=== PATIENT | female | born 1975 | race Caucasian/White ===

== ENCOUNTER 2017-10-09 17:51 | Inpatient (IN) | payer MEDICAID ==
[2017-10-09 19:48] VITALS: BP 129/85
[2017-10-09] MEDS ORDERED: DIVA500T35 PO (20:06)
[2017-10-09] MEDS ORDERED: RISP1 PO (20:06)
[2017-10-09] MEDS ORDERED: LORazepam 2 MG TABLET PO PRN (20:30)
[2017-10-09] MEDS ORDERED: HALOPERIDOL 5 MG TABLET PO PRN (20:30)
[2017-10-09] MEDS ORDERED: ZOLPIDEM TARTRATE 10 MG TABLET PO PRN (20:30)
[2017-10-10] MEDS: RisperiDONE 1 MG TABLET PO SCH ×3 (00:15→18:00)
[2017-10-10] MEDS: DIVALPROEX SODIUM 500 MG DR TABLET PO SCH ×3 (00:15→18:00)
[2017-10-10] MEDS ORDERED: LORazepam 2 MG/ML VIAL IM ONE (01:15)
[2017-10-10] MEDS ORDERED: HALOPERIDOL LACTATE 5 MG/ML VIAL IM ONE (01:15)
[2017-10-10] MEDS ORDERED: DiphenhydrAMINE HCL 50 MG/ML VIAL IM ONE (01:15)
[2017-10-10 07:11] LABS: BASOPHILS % (AUTO) 1.1 % (0.0-2.0); HEMATOCRIT 36.9 % (36-46); HEMOGLOBIN 12.7 g/dL (12.0-16.0); LYMPHOCYTES # (AUTO) 2.4 K/uL (1.0-4.8); LYMPHOCYTES % (AUTO) 43.5 % (22.0-44.0); MEAN CORPUSCULAR HEMOGLOBIN 31.3 pg (26.0-34.0); MEAN CORPUSCULAR HGB CONC 34.4 G/dL (31.0-37.0); MEAN CORPUSCULAR VOLUME 91 fL (80-100); MONOCYTES # (AUTO) 0.4 K/uL (0.1-1.0); MONOCYTES % (AUTO) 7.6 % (2.0-9.0); NEUTROPHILS # (AUTO) 2.1 K/uL (1.8-7.7); NEUTROPHILS % (AUTO) 38.8 % (40.0-70.0); PLATELET COUNT (AUTO) 338 K/uL (150-450); RED BLOOD CELL COUNT(AUTO) 4.05 MIL/uL (4.00-5.20); RED CELL DISTRIBUTION WIDTH 13.4 % (11.5-14.5)
[2017-10-10 07:50] LABS: ALANINE AMINOTRANSFERASE 23 U/L (12-78); ALBUMIN 3.5 g/dL (3.4-5.0); ALKALINE PHOSPHATASE 56 U/L (46-116); ANION GAP 7 mmol/L (8-16); ASPARTATE AMINOTRANSFERASE 30 U/L (15-37); BILIRUBIN,TOTAL 0.8 mg/dL (0.1-1.0); CALCIUM, TOTAL 8.7 mg/dL (8.8-10.5); CARBON DIOXIDE 25 mmol/L (22-29); CHLORIDE 101 mmol/L (98-107); CREATININE 0.67 mg/dL (0.60-1.30); FREE T4 (FREE THYROXINE) 0.92 ng/dL (0.76-1.46); GLOMERULAR FILTR. RATE CALC > 60 mL/min (>60); GLUCOSE,RANDOM 97 mg/dL (70-110); HCG,QUANTITATIVE < 1 mIU/mL (0-6); POTASSIUM 4.1 mmol/L (3.5-5.1); SODIUM SERUM 133 mmol/L (136-145); THYROID STIMULATING HORMONE 2.41 uIU/mL (0.36-3.74); TOTAL PROTEIN, SERUM 7.1 g/dL (6.4-8.2); UREA NITROGEN, BLOOD 16 mg/dL (7-18); VALPROIC ACID 4 mcg/mL (50-100)
[2017-10-10] MEDS: OLANZapine 5 MG TABLET PO SCH (18:00)
[2017-10-11] MEDS: RisperiDONE 1 MG TABLET PO SCH ×2 (10:23→17:33)
[2017-10-11] MEDS: DIVALPROEX SODIUM 500 MG DR TABLET PO SCH ×2 (10:23→17:33)
[2017-10-11] MEDS: OLANZapine 5 MG TABLET PO SCH ×2 (10:24→17:33)
[2017-10-11 16:00] VITALS: BP 102/69
[2017-10-12 06:12] LABS: EOSINOPHILS % (AUTO) 6.9 % (1.0-6.0); HEMATOCRIT 42.8 % (36-46); HEMOGLOBIN 14.9 g/dL (12.0-16.0); LYMPHOCYTES # (AUTO) 2.3 K/uL (1.0-4.8); LYMPHOCYTES % (AUTO) 36.2 % (22.0-44.0); MEAN CORPUSCULAR HEMOGLOBIN 31.4 pg (26.0-34.0); MEAN CORPUSCULAR HGB CONC 34.7 G/dL (31.0-37.0); MEAN CORPUSCULAR VOLUME 91 fL (80-100); MONOCYTES # (AUTO) 0.3 K/uL (0.1-1.0); MONOCYTES % (AUTO) 5.3 % (2.0-9.0); NEUTROPHILS # (AUTO) 3.2 K/uL (1.8-7.7); NEUTROPHILS % (AUTO) 50.6 % (40.0-70.0); PLATELET COUNT (AUTO) 369 K/uL (150-450); RED BLOOD CELL COUNT(AUTO) 4.73 MIL/uL (4.00-5.20); RED CELL DISTRIBUTION WIDTH 13.2 % (11.5-14.5)
[2017-10-12 07:03] LABS: ALANINE AMINOTRANSFERASE 22 U/L (12-78); ALBUMIN 3.7 g/dL (3.4-5.0); ALKALINE PHOSPHATASE 61 U/L (46-116); ANION GAP 9 mmol/L (8-16); ASPARTATE AMINOTRANSFERASE 16 U/L (15-37); BILIRUBIN,TOTAL 0.6 mg/dL (0.1-1.0); CALCIUM, TOTAL 9.1 mg/dL (8.8-10.5); CARBON DIOXIDE 25 mmol/L (22-29); CHLORIDE 102 mmol/L (98-107); CHOL/HDL RATIO 3.3 (3.9-5.7); CHOLESTEROL 169 mg/dL (131-200); CREATININE 0.76 mg/dL (0.60-1.30); FREE T4 (FREE THYROXINE) 1.06 ng/dL (0.76-1.46); GLOMERULAR FILTR. RATE CALC > 60 mL/min (>60); GLUCOSE,RANDOM 104 mg/dL (70-110); HDL CHOLESTEROL 51 mg/dL (40-60); LDL CHOL (CALC.) 96 mg/dL (0-130); POTASSIUM 4.5 mmol/L (3.5-5.1); SODIUM SERUM 136 mmol/L (136-145); THYROID STIMULATING HORMONE 1.55 uIU/mL (0.36-3.74); TOTAL PROTEIN, SERUM 7.6 g/dL (6.4-8.2); TRIGLYCERIDES 110 mg/dL (15-150); UREA NITROGEN, BLOOD 14 mg/dL (7-18)
[2017-10-12 09:07] LABS: FOLATE SERUM 14.5 ng/mL (5.4-)
[2017-10-12] MEDS: RisperiDONE 1 MG TABLET PO SCH ×2 (09:36→17:26)
[2017-10-12] MEDS: OLANZapine 5 MG TABLET PO SCH ×2 (09:36→17:26)
[2017-10-12] MEDS: DIVALPROEX SODIUM 500 MG DR TABLET PO SCH ×2 (09:36→17:26)
[2017-10-12 10:41] VITALS: BP 105/73
[2017-10-12 17:00] VITALS: BP 112/76
[2017-10-13] MEDS: DIVALPROEX SODIUM 500 MG DR TABLET PO SCH ×3 (09:00→16:25)
[2017-10-13] MEDS: RisperiDONE 1 MG TABLET PO SCH ×2 (09:52→16:21)
[2017-10-13] MEDS: OLANZapine 5 MG TABLET PO SCH ×2 (09:52→16:21)
[2017-10-13 13:51] VITALS: BP 94/64
[2017-10-13 16:39] VITALS: BP 104/72
[2017-10-14 08:00] VITALS: BP 123/72
[2017-10-14] MEDS ORDERED: OLANZapine 5 MG TABLET PO SCH (09:00)
[2017-10-14 09:56] VITALS: BP 123/72
[2017-10-14] MEDS ORDERED: OLAN7.5T2 PO (10:48)
== END 2017-10-14 13:35 | disposition home or self-care (01) | DRG 750 ==
LOC: 3EI 20:43
PROVIDERS: ADMIT Psychiatry & Neurology Psychiatry; ATTEND Psychiatry & Neurology Psychiatry
DX: F20.0 Paranoid schizophrenia (principal); E87.1 Hypo-osmolality and hyponatremia; T42.6X5A Adverse effect of other antiepileptic and sedative-hypnotic drugs, initial encounter; F29 Unspecified psychosis not due to a substance or known physiological condition; F41.9 Anxiety disorder, unspecified; H53.2 Diplopia; Z59.0 Homelessness; Y92.89 Other specified places as the place of occurrence of the external cause
CPT/HCPCS: 80074; 82306; 82607; 82746; 83735; 84439; 84443; 86592; J1200; J1630; J2060

== ENCOUNTER 2017-11-08 13:58 | Inpatient (IN) | payer MEDICAID, OTHER ==
[~2017-11-08] VITALS: Ht 154.9 cm; Wt 56.0 kg
[~2017-11-08 13:58] MED LIST: DIVA500T35 PO; OLAN7.5T2 PO; RISP1 PO
[2017-11-08] MEDS ORDERED: SERT50TA12 PO (14:17)
[2017-11-08 14:34] LABS: BASOPHILS % (AUTO) 1.1 % (0.0-2.0); HEMATOCRIT 34.7 % (36-46); HEMOGLOBIN 11.9 g/dL (12.0-16.0); LYMPHOCYTES # (AUTO) 2.5 K/uL (1.0-4.8); LYMPHOCYTES % (AUTO) 42.9 % (22.0-44.0); MEAN CORPUSCULAR HGB CONC 34.2 G/dL (31.0-37.0); MEAN CORPUSCULAR VOLUME 91 fL (80-100); MONOCYTES # (AUTO) 0.3 K/uL (0.1-1.0); MONOCYTES % (AUTO) 4.7 % (2.0-9.0); NEUTROPHILS # (AUTO) 2.6 K/uL (1.8-7.7); NEUTROPHILS % (AUTO) 44.3 % (40.0-70.0); PLATELET COUNT (AUTO) 301 K/uL (150-450); RED BLOOD CELL COUNT(AUTO) 3.83 MIL/uL (4.00-5.20); RED CELL DISTRIBUTION WIDTH 13.3 % (11.5-14.5)
[2017-11-08 14:42] LABS: AMPHET/METH SCREEN,URINE POSITIVE (NEGATIVE); BARBITURATE SCREEN, URINE NEGATIVE (NEGATIVE); BENZODIAZEPINES SCREEN,URINE NEGATIVE (NEGATIVE); CANNABINOID SCREEN,URINE POSITIVE (NEGATIVE); COCAINE SCREEN,URINE NEGATIVE (NEGATIVE); METHADONE SCREEN, URINE NEGATIVE (NEGATIVE); OPIATE SCREEN,URINE NEGATIVE (NEGATIVE); PHENCYCLIDINE SCREEN,URINE NEGATIVE (NEGATIVE)
[2017-11-08 14:42] LABS: ANION GAP 10 mmol/L (8-16); CARBON DIOXIDE 24 mmol/L (22-29); CHLORIDE 107 mmol/L (98-107); CREATININE 0.75 mg/dL (0.60-1.30); GLOMERULAR FILTR. RATE CALC > 60 mL/min (>60); GLUCOSE,RANDOM 82 mg/dL (70-110); POTASSIUM 3.3 mmol/L (3.5-5.1); SODIUM SERUM 141 mmol/L (136-145); UREA NITROGEN, BLOOD 11 mg/dL (7-18)
[2017-11-08 14:48] LABS: ALANINE AMINOTRANSFERASE 23 U/L (12-78); ALBUMIN 3.5 g/dL (3.4-5.0); ALKALINE PHOSPHATASE 55 U/L (46-116); ASPARTATE AMINOTRANSFERASE 19 U/L (15-37); BILIRUBIN,TOTAL 0.8 mg/dL (0.1-1.0); TOTAL PROTEIN, SERUM 7.1 g/dL (6.4-8.2)
[2017-11-08] MEDS ORDERED: POTASSIUM CHLORIDE 20 MEQ ER TABLET PO ONE (15:00)
[2017-11-08] MEDS ORDERED: LORazepam 2 MG TABLET PO PRN (17:30)
[2017-11-08] MEDS ORDERED: HALOPERIDOL 5 MG TABLET PO PRN (17:30)
[2017-11-08] MEDS ORDERED: ZOLPIDEM TARTRATE 10 MG TABLET PO PRN (17:30)
[2017-11-08 19:18] LABS: HCG,QUANTITATIVE < 1 mIU/mL (0-6)
[2017-11-09] MEDS ORDERED: LORazepam 2 MG/ML VIAL IM ONE ×2 (09:00→19:00)
[2017-11-09] MEDS ORDERED: DiphenhydrAMINE HCL 50 MG/ML VIAL IM ONE ×2 (09:00→19:00)
[2017-11-09] MEDS ORDERED: HALOPERIDOL LACTATE 5 MG/ML VIAL IM ONE ×2 (09:00→19:00)
[2017-11-09 09:20] LABS: CHOL/HDL RATIO 2.8 (3.9-5.7)
[2017-11-09 09:40] LABS: FREE T4 (FREE THYROXINE) 0.94 ng/dL (0.76-1.46); THYROID STIMULATING HORMONE 1.02 uIU/mL (0.36-3.74)
[2017-11-09 12:19] VITALS: BP 112/66
[2017-11-09] MEDS ORDERED: IBUPROFEN 400 MG TABLET PO PRN ×2 (13:15→16:15)
[2017-11-09] MEDS ORDERED: ACETAMINOPHEN 325 MG TABLET PO PRN ×2 (13:15→16:15)
[2017-11-09] MEDS: TERBINAFINE HCL 1% 30 GM CREAM TP SCH (16:12)
[2017-11-10 01:30] VITALS: BP 101/63
[2017-11-10 08:21] VITALS: BP 114/71
[2017-11-10 08:27] LABS: HEMOGLOBIN A1C 6.2 % (4.5-6.2)
[2017-11-10 08:46] LABS: POTASSIUM 3.8 mmol/L (3.5-5.1); THYROID STIMULATING HORMONE 3.1 uIU/mL (0.36-3.74)
[2017-11-10] MEDS: RisperiDONE 2 MG TABLET PO SCH ×2 (09:00→16:48)
[2017-11-10] MEDS: DIVALPROEX SODIUM 500 MG DR TABLET PO SCH ×2 (09:00→16:48)
[2017-11-10] MEDS: TERBINAFINE HCL 1% 30 GM CREAM TP SCH ×2 (09:00→16:49)
[2017-11-10] MEDS ORDERED: IBUPROFEN 400 MG TABLET PO PRN (13:30)
[2017-11-10] MEDS ORDERED: ACETAMINOPHEN 325 MG TABLET PO PRN (13:30)
[2017-11-10 16:54] VITALS: BP 108/66
[2017-11-11 06:41] VITALS: BP 110/70
[2017-11-11 08:30] LABS: HEMOGLOBIN A1C 5.6 % (4.5-6.2)
[2017-11-11 08:37] VITALS: BP 116/71
[2017-11-11] MEDS: RisperiDONE 2 MG TABLET PO SCH ×2 (08:51→16:50)
[2017-11-11] MEDS: TERBINAFINE HCL 1% 30 GM CREAM TP SCH ×2 (08:51→16:50)
[2017-11-11] MEDS: DIVALPROEX SODIUM 500 MG DR TABLET PO SCH ×2 (08:52→16:50)
[2017-11-11 09:00] LABS: THYROID STIMULATING HORMONE 1.72 uIU/mL (0.36-3.74)
[2017-11-11 16:21] VITALS: BP 109/77
[2017-11-12 06:52] VITALS: BP 100/68
[2017-11-12 08:33] VITALS: BP 106/69
[2017-11-12] MEDS: DIVALPROEX SODIUM 500 MG DR TABLET PO SCH (08:54)
[2017-11-12] MEDS: RisperiDONE 2 MG TABLET PO SCH (08:54)
[2017-11-12] MEDS: TERBINAFINE HCL 1% 30 GM CREAM TP SCH (08:54)
[2017-11-12] MEDS ORDERED: DIVA500T35 PO (12:56)
[2017-11-12] MEDS ORDERED: TERB30CR22 TP (12:58)
[2017-11-12] MEDS ORDERED: DIVALPROEX SODIUM 500 MG DR TABLET PO SCH (17:00)
[2017-11-12] MEDS ORDERED: RisperiDONE 1 MG TABLET PO SCH (17:00)
[2017-11-12] MEDS ORDERED: TERBINAFINE HCL 1% 30 GM CREAM TP SCH (17:00)
== END 2017-11-12 14:43 | disposition home or self-care (01) | DRG 750 ==
LOC: EMS 14:00 → B3A 11-09 10:57
PROVIDERS: ATTEND Psychiatry & Neurology Psychiatry
DX: F25.9 Schizoaffective disorder, unspecified (principal); Z59.0 Homelessness; F32.9 Major depressive disorder, single episode, unspecified; E87.6 Hypokalemia; D64.9 Anemia, unspecified; F12.90 Cannabis use, unspecified, uncomplicated; F17.200 Nicotine dependence, unspecified, uncomplicated; F41.9 Anxiety disorder, unspecified; F17.210 Nicotine dependence, cigarettes, uncomplicated
CPT/HCPCS: 83036; 84132; 84439; 84443; 87081; 99285; G0480; J1200; J1630; J2060

== ENCOUNTER 2018-03-16 23:50 | Inpatient (IN) | payer MEDICAID ==
[~2018-03-16] VITALS: Ht 154.9 cm; Wt 55.8 kg
[~2018-03-16 23:50] MED LIST changes: +DIVA-78 PO; -DIVA500T35 PO; -OLAN7.5T2 PO; +TERB30CR22 TP
[2018-03-17 02:30] VITALS: BP 120/81
[2018-03-17 03:30] VITALS: BP 116/80
[2018-03-17] MEDS ORDERED: CloNIDine HCL 0.1 MG TABLET PO PRN (07:45)
[2018-03-17] MEDS ORDERED: PETROLATUM,WHITE 71 GM JELLY TP PRN (07:45)
[2018-03-17] MEDS ORDERED: GuaiFENesin/D-METHORPHAN [SUGAR-FREE] 200-20MG/10 ML SYRUP UDCUP PO PRN (07:45)
[2018-03-17] MEDS ORDERED: ACETAMINOPHEN 325 MG TABLET PO PRN (07:45)
[2018-03-17] MEDS ORDERED: LOPERAMIDE HCL 2 MG CAPSULE PO PRN (07:45)
[2018-03-17] MEDS ORDERED: DOCUSATE SODIUM 100 MG CAPSULE PO PRN (07:45)
[2018-03-17] MEDS ORDERED: NICOTINE 14 MG/24 HOUR PATCH TD PRN (07:45)
[2018-03-17] MEDS ORDERED: ALBUTEROL SULFATE HFA 90 MCG/PUFF 8 GM INHALER IH PRN (07:45)
[2018-03-17] MEDS ORDERED: MAGNESIUM HYDROXIDE SUSPENSION 30 ML UDCUP PO PRN (07:45)
[2018-03-17] MEDS ORDERED: MAG HYDROX/AL HYDROX/SIMETH ES 30 ML SUSPENSION UDCUP PO PRN (07:45)
[2018-03-17] MEDS ORDERED: IBUPROFEN 400 MG TABLET PO PRN (07:45)
[2018-03-17] MEDS ORDERED: ONDANSETRON HCL 4 MG TABLET PO PRN (07:45)
[2018-03-17] MEDS ORDERED: HALOPERIDOL 5 MG TABLET PO PRN (12:30)
[2018-03-17] MEDS ORDERED: LORazepam 2 MG TABLET PO PRN (12:30)
[2018-03-17] MEDS ORDERED: ZOLPIDEM TARTRATE 10 MG TABLET PO PRN (12:30)
[2018-03-17 16:15] VITALS: BP 115/72
[2018-03-17] MEDS: RisperiDONE 1 MG TABLET PO SCH (16:59)
[2018-03-17] MEDS: DIVALPROEX SODIUM 500 MG DR TABLET PO SCH (17:00)
[2018-03-18 06:41] VITALS: BP 120/78
[2018-03-18 08:24] VITALS: BP 98/60
[2018-03-18 08:40] LABS: BASOPHILS % (AUTO) 0.9 % (0.0-2.0); EOSINOPHILS % (AUTO) 4.6 % (1.0-6.0); HEMATOCRIT 38.9 % (36-46); HEMOGLOBIN 13.2 g/dL (12.0-16.0); LYMPHOCYTES # (AUTO) 2.9 K/uL (1.0-4.8); LYMPHOCYTES % (AUTO) 39.1 % (22.0-44.0); MEAN CORPUSCULAR HEMOGLOBIN 31.2 pg (26.0-34.0); MEAN CORPUSCULAR HGB CONC 33.8 G/dL (31.0-37.0); MEAN CORPUSCULAR VOLUME 92 fL (80-100); MONOCYTES # (AUTO) 0.5 K/uL (0.1-1.0); MONOCYTES % (AUTO) 6.5 % (2.0-9.0); NEUTROPHILS # (AUTO) 3.6 K/uL (1.8-7.7); NEUTROPHILS % (AUTO) 48.9 % (40.0-70.0); PLATELET COUNT (AUTO) 312 K/uL (150-450); RED BLOOD CELL COUNT(AUTO) 4.21 MIL/uL (4.00-5.20); RED CELL DISTRIBUTION WIDTH 13.2 % (11.5-14.5)
[2018-03-18] MEDS: DIVALPROEX SODIUM 500 MG DR TABLET PO SCH ×2 (09:05→16:45)
[2018-03-18] MEDS: RisperiDONE 1 MG TABLET PO SCH ×2 (09:05→16:45)
[2018-03-18 09:13] LABS: ALANINE AMINOTRANSFERASE 20 U/L (12-78); ALBUMIN 3.5 g/dL (3.4-5.0); ALKALINE PHOSPHATASE 48 U/L (46-116); ANION GAP 9 mmol/L (8-16); ASPARTATE AMINOTRANSFERASE 12 U/L (15-37); BILIRUBIN,TOTAL 0.5 mg/dL (0.1-1.0); CALCIUM, TOTAL 8.7 mg/dL (8.8-10.5); CARBON DIOXIDE 26 mmol/L (22-29); CHLORIDE 101 mmol/L (98-107); CHOL/HDL RATIO 3.1 (3.9-5.7); CHOLESTEROL 160 mg/dL (131-200); CREATININE 0.73 mg/dL (0.60-1.30); GLOMERULAR FILTR. RATE CALC > 60 mL/min (>60); GLUCOSE,RANDOM 98 mg/dL (70-110); HDL CHOLESTEROL 52 mg/dL (40-60); LDL CHOL (CALC.) 79 mg/dL (0-130); POTASSIUM 4.3 mmol/L (3.5-5.1); SODIUM SERUM 136 mmol/L (136-145); THYROID STIMULATING HORMONE 4.18 uIU/mL (0.36-3.74); TOTAL PROTEIN, SERUM 7.2 g/dL (6.4-8.2); TRIGLYCERIDES 143 mg/dL (15-150); UREA NITROGEN, BLOOD 18 mg/dL (7-18)
[2018-03-18 09:31] LABS: HEMOGLOBIN A1C 5.4 % (4.5-6.2)
[2018-03-18] MEDS ORDERED: POTASSIUM CHLORIDE 20 MEQ ER TABLET PO ONE (10:30)
[2018-03-18 17:16] VITALS: BP 118/62
[2018-03-19 07:19] VITALS: BP 110/68
[2018-03-19 08:47] VITALS: BP 125/82
[2018-03-19] MEDS: DIVALPROEX SODIUM 500 MG DR TABLET PO SCH (09:01)
[2018-03-19] MEDS: RisperiDONE 1 MG TABLET PO SCH (09:01)
[2018-03-19 09:11] LABS: ANION GAP 9 mmol/L (8-16); CALCIUM, TOTAL 8.8 mg/dL (8.8-10.5); CARBON DIOXIDE 26 mmol/L (22-29); CHLORIDE 100 mmol/L (98-107); CREATININE 0.64 mg/dL (0.60-1.30); FREE T4 (FREE THYROXINE) 0.85 ng/dL (0.76-1.46); GLOMERULAR FILTR. RATE CALC > 60 mL/min (>60); GLUCOSE,RANDOM 98 mg/dL (70-110); POTASSIUM 4.4 mmol/L (3.5-5.1); SODIUM SERUM 135 mmol/L (136-145); UREA NITROGEN, BLOOD 14 mg/dL (7-18)
[2018-03-19] MEDS ORDERED: RISP1 PO (10:25)
[2018-03-19] MEDS ORDERED: DIVA-78 PO (10:25)
== END 2018-03-19 13:24 | disposition home or self-care (01) | DRG 750 ==
LOC: B3A 03-17 02:54
DX: F25.1 Schizoaffective disorder, depressive type (principal); R45.851 Suicidal ideations; E03.9 Hypothyroidism, unspecified; F12.10 Cannabis abuse, uncomplicated; F15.10 Other stimulant abuse, uncomplicated; F17.200 Nicotine dependence, unspecified, uncomplicated; Z71.6 Tobacco abuse counseling; Z71.51 Drug abuse counseling and surveillance of drug abuser; Z79.899 Other long term (current) drug therapy
CPT/HCPCS: 83036; 84439; 84443; 90686

== ENCOUNTER 2018-05-19 19:20 | Inpatient (IN) | payer MEDICAID ==
[~2018-05-19] VITALS: Ht 154.9 cm; Wt 58.1 kg
[~2018-05-19 19:20] MED LIST changes: -TERB30CR22 TP
[2018-05-19] MEDS ORDERED: LORazepam 2 MG TABLET PO PRN (19:45)
[2018-05-19] MEDS ORDERED: HALOPERIDOL 5 MG TABLET PO PRN (19:45)
[2018-05-19] MEDS ORDERED: ZOLPIDEM TARTRATE 10 MG TABLET PO PRN (19:45)
[2018-05-19 19:55] VITALS: BP 105/69
[2018-05-19 20:18] VITALS: BP 110/74
[2018-05-19] MEDS ORDERED: GuaiFENesin/D-METHORPHAN [SUGAR-FREE] 200-20MG/10 ML SYRUP UDCUP PO PRN (20:30)
[2018-05-19] MEDS ORDERED: PETROLATUM,WHITE 71 GM JELLY TP PRN (20:30)
[2018-05-19] MEDS ORDERED: ONDANSETRON HCL 4 MG TABLET PO PRN (20:30)
[2018-05-19] MEDS ORDERED: NICOTINE 14 MG/24 HOUR PATCH TD PRN (20:30)
[2018-05-19] MEDS ORDERED: MAG HYDROX/AL HYDROX/SIMETH ES 30 ML SUSPENSION UDCUP PO PRN (20:30)
[2018-05-19] MEDS ORDERED: MAGNESIUM HYDROXIDE SUSPENSION 30 ML UDCUP PO PRN (20:30)
[2018-05-19] MEDS ORDERED: ACETAMINOPHEN 325 MG TABLET PO PRN (20:30)
[2018-05-19] MEDS ORDERED: CloNIDine HCL 0.1 MG TABLET PO PRN (20:30)
[2018-05-19] MEDS ORDERED: IBUPROFEN 400 MG TABLET PO PRN (20:30)
[2018-05-19] MEDS ORDERED: ALBUTEROL SULFATE HFA 90 MCG/PUFF 8 GM INHALER IH PRN (20:30)
[2018-05-19] MEDS ORDERED: LOPERAMIDE HCL 2 MG CAPSULE PO PRN (20:30)
[2018-05-19] MEDS ORDERED: DOCUSATE SODIUM 100 MG CAPSULE PO PRN (20:30)
[2018-05-20 06:45] VITALS: BP 105/65
[2018-05-20 07:22] LABS: BASOPHILS % (AUTO) 0.8 % (0.0-2.0); EOSINOPHILS % (AUTO) 9.5 % (1.0-6.0); HEMATOCRIT 36.7 % (36-46); HEMOGLOBIN 12.9 g/dL (12.0-16.0); LYMPHOCYTES # (AUTO) 2.8 K/uL (1.0-4.8); LYMPHOCYTES % (AUTO) 42.2 % (22.0-44.0); MEAN CORPUSCULAR HEMOGLOBIN 32.5 pg (26.0-34.0); MEAN CORPUSCULAR VOLUME 93 fL (80-100); MONOCYTES # (AUTO) 0.7 K/uL (0.1-1.0); MONOCYTES % (AUTO) 10.6 % (2.0-9.0); NEUTROPHILS # (AUTO) 2.4 K/uL (1.8-7.7); NEUTROPHILS % (AUTO) 36.9 % (40.0-70.0); PLATELET COUNT (AUTO) 267 K/uL (150-450); RED BLOOD CELL COUNT(AUTO) 3.95 MIL/uL (4.00-5.20); RED CELL DISTRIBUTION WIDTH 13.1 % (11.5-14.5)
[2018-05-20 07:36] LABS: HEMOGLOBIN A1C 5.4 % (4.5-6.2)
[2018-05-20 07:46] LABS: ALANINE AMINOTRANSFERASE 20 U/L (12-78); ALBUMIN 3.3 g/dL (3.4-5.0); ALKALINE PHOSPHATASE 47 U/L (46-116); ANION GAP 6 mmol/L (8-16); ASPARTATE AMINOTRANSFERASE 18 U/L (15-37); BILIRUBIN,TOTAL 0.5 mg/dL (0.1-1.0); CALCIUM, TOTAL 8.4 mg/dL (8.8-10.5); CARBON DIOXIDE 26 mmol/L (22-29); CHLORIDE 107 mmol/L (98-107); CHOL/HDL RATIO 2.2 (3.9-5.7); CHOLESTEROL 137 mg/dL (131-200); CREATININE 0.69 mg/dL (0.60-1.30); GLOMERULAR FILTR. RATE CALC > 60 mL/min (>60); GLUCOSE,RANDOM 98 mg/dL (70-110); HCG,QUANTITATIVE < 1 mIU/mL (0-6); HDL CHOLESTEROL 61 mg/dL (40-60); LDL CHOL (CALC.) 66 mg/dL (0-130); POTASSIUM 3.6 mmol/L (3.5-5.1); SODIUM SERUM 139 mmol/L (136-145); THYROID STIMULATING HORMONE 2.83 uIU/mL (0.36-3.74); TOTAL PROTEIN, SERUM 6.8 g/dL (6.4-8.2); TRIGLYCERIDES 50 mg/dL (15-150); UREA NITROGEN, BLOOD 13 mg/dL (7-18)
[2018-05-20 08:16] VITALS: BP 123/74
[2018-05-20] MEDS: DIVALPROEX SODIUM 500 MG ER TABLET PO SCH ×2 (10:25→16:51)
[2018-05-20] MEDS: RisperiDONE 1 MG TABLET PO SCH ×2 (10:25→16:51)
[2018-05-20 16:11] VITALS: BP 100/62
[2018-05-21 06:13] VITALS: BP 101/60
[2018-05-21] MEDS: DIVALPROEX SODIUM 500 MG ER TABLET PO SCH ×2 (08:08→16:19)
[2018-05-21] MEDS: RisperiDONE 1 MG TABLET PO SCH ×2 (08:08→16:19)
[2018-05-21 08:10] VITALS: BP 100/61
[2018-05-21 16:11] VITALS: BP 110/69
[2018-05-22 06:27] VITALS: BP 102/60
[2018-05-22 08:03] VITALS: BP 102/68
[2018-05-22] MEDS: RisperiDONE 1 MG TABLET PO SCH (09:04)
[2018-05-22] MEDS: DIVALPROEX SODIUM 500 MG ER TABLET PO SCH (09:04)
[2018-05-22] MEDS ORDERED: DIVA500T69 PO (09:42)
[2018-05-22] MEDS ORDERED: RISP1TAB89 PO (09:43)
[2018-05-22] MEDS ORDERED: DIVA500T52 PO (09:46)
[2018-05-22] MEDS ORDERED: RISP1 PO (09:46)
== END 2018-05-22 11:20 | disposition home or self-care (01) | DRG 750 ==
LOC: B3A 19:38
PROVIDERS: ADMIT Psychiatry & Neurology Psychiatry; ATTEND Psychiatry & Neurology Psychiatry
DX: F25.1 Schizoaffective disorder, depressive type (principal); R45.851 Suicidal ideations; F15.20 Other stimulant dependence, uncomplicated; D64.9 Anemia, unspecified; B35.1 Tinea unguium; F17.210 Nicotine dependence, cigarettes, uncomplicated; Z71.6 Tobacco abuse counseling; Z79.899 Other long term (current) drug therapy; Z71.51 Drug abuse counseling and surveillance of drug abuser; Z28.21 Immunization not carried out because of patient refusal
CPT/HCPCS: 83036; 84439; 84443; 90686

== ENCOUNTER 2018-06-25 13:32 | Emergency (ER) | payer MEDICAID ==
[~2018-06-25] VITALS: Ht 160 cm; Wt 59.1 kg
[~2018-06-25 13:32] MED LIST changes: -DIVA-78 PO; +DIVA500T52 PO; +DIVA500T69 PO; +RISP1TAB89 PO
[2018-06-25 13:38] VITALS: BP 100/75
== END 2018-06-25 15:25 | disposition left against medical advice (07) ==
LOC: EMS 13:35
DX: F41.9 Anxiety disorder, unspecified (principal); Z53.21 Procedure and treatment not carried out due to patient leaving prior to being seen by health care provider

== ENCOUNTER 2018-06-25 15:43 | Emergency (ER) | payer MEDICAID | END 2018-06-25 19:05 | disposition left against medical advice (07) | LOC: EMS 15:44 | DX: R69 Illness, unspecified (principal); Z53.21 Procedure and treatment not carried out due to patient leaving prior to being seen by health care provider ==

== ENCOUNTER 2018-07-24 23:58 | Inpatient (IN) | payer MEDICAID ==
[~2018-07-24] VITALS: Ht 154.9 cm; Wt 58.5 kg
[~2018-07-24 23:58] MED LIST changes: -DIVA500T52 PO; -RISP1 PO
[2018-07-25] MEDS ORDERED: HALOPERIDOL 5 MG TABLET PO PRN (00:45)
[2018-07-25] MEDS ORDERED: ZOLPIDEM TARTRATE 10 MG TABLET PO PRN (00:45)
[2018-07-25] MEDS ORDERED: LORazepam 1 MG TABLET PO PRN (00:45)
[2018-07-25] MEDS ORDERED: IBUPROFEN 400 MG TABLET PO PRN (04:15)
[2018-07-25] MEDS ORDERED: ALBUTEROL SULFATE HFA 90 MCG/PUFF 8 GM INHALER IH PRN (04:15)
[2018-07-25] MEDS ORDERED: LOPERAMIDE HCL 2 MG CAPSULE PO PRN (04:15)
[2018-07-25] MEDS ORDERED: DOCUSATE SODIUM 100 MG CAPSULE PO PRN (04:15)
[2018-07-25] MEDS ORDERED: GuaiFENesin/D-METHORPHAN [SUGAR-FREE] 200-20MG/10 ML SYRUP UDCUP PO PRN (04:15)
[2018-07-25] MEDS ORDERED: PETROLATUM,WHITE 71 GM JELLY TP PRN (04:15)
[2018-07-25] MEDS ORDERED: ACETAMINOPHEN 325 MG TABLET PO PRN (04:15)
[2018-07-25] MEDS ORDERED: ONDANSETRON HCL 4 MG TABLET PO PRN (04:15)
[2018-07-25] MEDS ORDERED: NICOTINE 14 MG/24 HOUR PATCH TD PRN (04:15)
[2018-07-25] MEDS ORDERED: MAGNESIUM HYDROXIDE SUSPENSION 30 ML UDCUP PO PRN (04:15)
[2018-07-25] MEDS ORDERED: MAG HYDROX/AL HYDROX/SIMETH ES 30 ML SUSPENSION UDCUP PO PRN (04:15)
[2018-07-25] MEDS ORDERED: CloNIDine HCL 0.1 MG TABLET PO PRN (04:15)
[2018-07-25] MEDS ORDERED: PNEUMOCOCCAL VACCINE POLYVALENT 0.5 ML VIAL [PPSV23] IM ONE (04:45)
[2018-07-25] MEDS: DIVALPROEX SODIUM 500 MG ER TABLET PO SCH ×2 (12:07→16:48)
[2018-07-25] MEDS: RisperiDONE 1 MG TABLET PO SCH ×2 (12:07→16:48)
[2018-07-25 16:27] VITALS: BP 110/65
[2018-07-26 06:47] VITALS: BP 102/63
[2018-07-26] MEDS: DIVALPROEX SODIUM 500 MG ER TABLET PO SCH ×2 (08:16→16:45)
[2018-07-26] MEDS: RisperiDONE 1 MG TABLET PO SCH ×2 (08:16→16:45)
[2018-07-26 08:18] VITALS: BP 118/71
[2018-07-26 08:30] LABS: BASOPHILS % (AUTO) 0.7 % (0.0-2.0); EOSINOPHILS % (AUTO) 6.9 % (1.0-6.0); HEMATOCRIT 34.5 % (36-46); HEMOGLOBIN 11.5 g/dL (12.0-16.0); LYMPHOCYTES # (AUTO) 2.9 K/uL (1.0-4.8); LYMPHOCYTES % (AUTO) 47.5 % (22.0-44.0); MEAN CORPUSCULAR HEMOGLOBIN 30.8 pg (26.0-34.0); MEAN CORPUSCULAR HGB CONC 33.2 G/dL (31.0-37.0); MEAN CORPUSCULAR VOLUME 93 fL (80-100); MONOCYTES # (AUTO) 0.4 K/uL (0.1-1.0); MONOCYTES % (AUTO) 6.4 % (2.0-9.0); NEUTROPHILS # (AUTO) 2.3 K/uL (1.8-7.7); NEUTROPHILS % (AUTO) 38.5 % (40.0-70.0); PLATELET COUNT (AUTO) 271 K/uL (150-450); RED BLOOD CELL COUNT(AUTO) 3.72 MIL/uL (4.00-5.20); RED CELL DISTRIBUTION WIDTH 13.4 % (11.5-14.5)
[2018-07-26 09:03] LABS: ALANINE AMINOTRANSFERASE 15 U/L (12-78); ALBUMIN 2.8 g/dL (3.4-5.0); ALKALINE PHOSPHATASE 43 U/L (46-116); ANION GAP 10 mmol/L (8-16); ASPARTATE AMINOTRANSFERASE 8 U/L (15-37); BILIRUBIN,TOTAL 0.7 mg/dL (0.1-1.0); CALCIUM, TOTAL 8.4 mg/dL (8.8-10.5); CARBON DIOXIDE 23 mmol/L (22-29); CHLORIDE 106 mmol/L (98-107); CHOL/HDL RATIO 2.8 (3.9-5.7); CHOLESTEROL 132 mg/dL (131-200); CREATININE 0.64 mg/dL (0.60-1.30); FREE T4 (FREE THYROXINE) 1.07 ng/dL (0.76-1.46); GLOMERULAR FILTR. RATE CALC > 60 mL/min (>60); GLUCOSE,RANDOM 88 mg/dL (70-110); HCG,QUANTITATIVE < 1 mIU/mL (0-6); HDL CHOLESTEROL 48 mg/dL (40-60); LDL CHOL (CALC.) 66 mg/dL (0-130); POTASSIUM 3.5 mmol/L (3.5-5.1); SODIUM SERUM 139 mmol/L (136-145); TOTAL PROTEIN, SERUM 6.3 g/dL (6.4-8.2); TRIGLYCERIDES 92 mg/dL (15-150); UREA NITROGEN, BLOOD 16 mg/dL (7-18)
[2018-07-26 09:21] LABS: HEMOGLOBIN A1C 5.4 % (4.5-6.2)
[2018-07-26 16:00] VITALS: BP 106/66
[2018-07-26 16:03] VITALS: BP 106/66
[2018-07-27 07:00] VITALS: BP 119/70
[2018-07-27 08:08] VITALS: BP 102/57
[2018-07-27 09:30] LABS: % IRON SATURATION 24.2 % (22-44)
[2018-07-27] MEDS: DIVALPROEX SODIUM 500 MG ER TABLET PO SCH (09:32)
[2018-07-27] MEDS: RisperiDONE 1 MG TABLET PO SCH (09:32)
[2018-07-28 08:23] LABS: APPEARANCE,URINE CLOUDY (CLEAR); BILIRUBIN,URINE NEGATIVE (NEGATIVE); GLUCOSE, URINE (UA) NEGATIVE (NEGATIVE); KETONES,URINE NEGATIVE (NEGATIVE); LEUKOCYTE ESTERASE ,URINE NEGATIVE (NEGATIVE); NITRATE,URINE POSITIVE (NEGATIVE); OCCULT BLOOD,URINE NEGATIVE (NEGATIVE); PROTEIN,URINE NEGATIVE (NEGATIVE); UROBILINOGEN,URINE 0.2 mg/dL (<=1.0)
[2018-07-28 08:31] LABS: AMPHET/METH SCREEN,URINE POSITIVE (NEGATIVE); BARBITURATE SCREEN, URINE NEGATIVE (NEGATIVE); BENZODIAZEPINES SCREEN,URINE NEGATIVE (NEGATIVE); CANNABINOID SCREEN,URINE NEGATIVE (NEGATIVE); COCAINE SCREEN,URINE NEGATIVE (NEGATIVE); METHADONE SCREEN, URINE NEGATIVE (NEGATIVE); OPIATE SCREEN,URINE NEGATIVE (NEGATIVE)
[2018-07-28 08:32] LABS: PHENCYCLIDINE SCREEN,URINE NEGATIVE (NEGATIVE)
[2018-07-28 08:50] LABS: BACTERIA,URINE Moderate /HPF (None Seen); RBC,URINE None Seen /HPF (0-2); SQUAMOUS EPITHELIAL CELL,UR Few /LPF (None Seen); WBC,URINE 0-2 /HPF (0-5)
== END 2018-07-27 13:15 | disposition home or self-care (01) | DRG 750 ==
LOC: B3A 07-25 00:35
PROVIDERS: ADMIT Psychiatry & Neurology Child & Adolescent Psychiatry; ATTEND Psychiatry & Neurology Child & Adolescent Psychiatry
PROC: 3E0234Z Introduction of Serum, Toxoid and Vaccine into Muscle, Percutaneous Approach (ICD-10-PCS; principal; 2018-07-25)
DX: F25.0 Schizoaffective disorder, bipolar type (principal); B35.1 Tinea unguium; D64.9 Anemia, unspecified; F17.200 Nicotine dependence, unspecified, uncomplicated; F19.10 Other psychoactive substance abuse, uncomplicated; F99 Mental disorder, not otherwise specified; F31.9 Bipolar disorder, unspecified; F41.9 Anxiety disorder, unspecified; Z71.6 Tobacco abuse counseling; Z71.51 Drug abuse counseling and surveillance of drug abuser; Z23 Encounter for immunization
CPT/HCPCS: 80307; 82728; 83036; 83540; 83550; 84439; 84443; 87086; 90732

== ENCOUNTER 2020-04-18 18:37 | Emergency (ER) | payer MEDICAID, OTHER ==
[~2020-04-18] VITALS: Ht 154.9 cm; Wt 47.3 kg
[2020-04-18 19:49] VITALS: BP 125/87
[2020-04-18 20:04] LABS: AMPHET/METH SCREEN,URINE POSITIVE (NEGATIVE); BARBITURATE SCREEN, URINE NEGATIVE (NEGATIVE); BENZODIAZEPINES SCREEN,URINE NEGATIVE (NEGATIVE); CANNABINOID SCREEN,URINE POSITIVE (NEGATIVE); COCAINE SCREEN,URINE NEGATIVE (NEGATIVE); METHADONE SCREEN, URINE NEGATIVE (NEGATIVE); OPIATE SCREEN,URINE NEGATIVE (NEGATIVE); PHENCYCLIDINE SCREEN,URINE NEGATIVE (NEGATIVE)
[2020-04-18 20:57] LABS: BASOPHILS % (AUTO) 0.9 % (0.0-2.0); EOSINOPHILS % (AUTO) 5.9 % (1.0-6.0); HEMATOCRIT 35.6 % (36-46); HEMOGLOBIN 11.7 g/dL (12.0-16.0); LYMPHOCYTES # (AUTO) 2.8 K/uL (1.0-4.8); LYMPHOCYTES % (AUTO) 37.5 % (22.0-44.0); MEAN CORPUSCULAR HEMOGLOBIN 31.2 pg (26.0-34.0); MEAN CORPUSCULAR HGB CONC 32.8 G/dL (31.0-37.0); MEAN CORPUSCULAR VOLUME 95 fL (80-100); MONOCYTES # (AUTO) 0.6 K/uL (0.1-1.0); NEUTROPHILS # (AUTO) 3.6 K/uL (1.8-7.7); NEUTROPHILS % (AUTO) 47.7 % (40.0-70.0); PLATELET COUNT (AUTO) 335 K/uL (150-450); RED BLOOD CELL COUNT(AUTO) 3.75 MIL/uL (4.00-5.20); RED CELL DISTRIBUTION WIDTH 13.3 % (11.5-14.5)
[2020-04-18 21:14] LABS: ANION GAP 10 mmol/L (8-16); CALCIUM, TOTAL 9.4 mg/dL (8.8-10.5); CARBON DIOXIDE 26 mmol/L (22-29); CHLORIDE 105 mmol/L (98-107); CREATININE 0.94 mg/dL (0.60-1.30); GLOMERULAR FILTR. RATE CALC > 60 mL/min (>60); GLUCOSE,RANDOM 124 mg/dL (70-110); POTASSIUM 3.8 mmol/L (3.5-5.1); SODIUM SERUM 141 mmol/L (136-145); UREA NITROGEN, BLOOD 15 mg/dL (7-18)
[2020-04-18 21:26] LABS: ALANINE AMINOTRANSFERASE 23 U/L (12-78); ALBUMIN 3.4 g/dL (3.4-5.0); ALKALINE PHOSPHATASE 60 U/L (46-116); ASPARTATE AMINOTRANSFERASE 22 U/L (15-37); BILIRUBIN,TOTAL 0.5 mg/dL (0.1-1.0); HCG,QUANTITATIVE 1 mIU/mL (0-6); TOTAL PROTEIN, SERUM 7.6 g/dL (6.4-8.2)
[2020-04-18 21:40] LABS: VALPROIC ACID 4 mcg/mL (50-100)
== END 2020-04-18 21:32 | disposition home or self-care (01) ==
LOC: EMS 18:37
DX: F20.9 Schizophrenia, unspecified (principal); F32.9 Major depressive disorder, single episode, unspecified; F41.9 Anxiety disorder, unspecified; F17.210 Nicotine dependence, cigarettes, uncomplicated
CPT/HCPCS: 36415; 80053; 80164; 80307; 84702; 85025; 99285; G0480

== ENCOUNTER 2020-04-26 23:06 | Inpatient (IN) | payer MEDICAID, OTHER ==
[~2020-04-26] VITALS: Ht 127 cm; Wt 48.1 kg
[2020-04-27 01:31] LABS: BASOPHILS % (AUTO) 0.8 % (0.0-2.0); EOSINOPHILS % (AUTO) 6.5 % (1.0-6.0); HEMATOCRIT 36.8 % (36-46); HEMOGLOBIN 12.5 g/dL (12.0-16.0); LYMPHOCYTES % (AUTO) 31.1 % (22.0-44.0); MEAN CORPUSCULAR HEMOGLOBIN 31.7 pg (26.0-34.0); MEAN CORPUSCULAR VOLUME 93 fL (80-100); MONOCYTES # (AUTO) 0.5 K/uL (0.1-1.0); MONOCYTES % (AUTO) 7.6 % (2.0-9.0); NEUTROPHILS # (AUTO) 3.5 K/uL (1.8-7.7); PLATELET COUNT (AUTO) 360 K/uL (150-450); RED BLOOD CELL COUNT(AUTO) 3.95 MIL/uL (4.00-5.20); RED CELL DISTRIBUTION WIDTH 13.2 % (11.5-14.5)
[2020-04-27 01:35] LABS: ANION GAP 3 mmol/L (8-16); CARBON DIOXIDE 25 mmol/L (22-29); CHLORIDE 105 mmol/L (98-107); CREATININE 0.72 mg/dL (0.60-1.30); GLOMERULAR FILTR. RATE CALC > 60 mL/min (>60); GLUCOSE,RANDOM 95 mg/dL (70-110); POTASSIUM 3.8 mmol/L (3.5-5.1); SODIUM SERUM 133 mmol/L (136-145); UREA NITROGEN, BLOOD 20 mg/dL (7-18)
[2020-04-27 01:40] LABS: ALANINE AMINOTRANSFERASE 19 U/L (12-78); ALBUMIN 3.6 g/dL (3.4-5.0); ALKALINE PHOSPHATASE 67 U/L (46-116); ASPARTATE AMINOTRANSFERASE 17 U/L (15-37); BILIRUBIN,TOTAL 0.5 mg/dL (0.1-1.0); TOTAL PROTEIN, SERUM 7.8 g/dL (6.4-8.2)
[2020-04-27] MEDS ORDERED: HALOPERIDOL 5 MG TABLET PO PRN (01:45)
[2020-04-27] MEDS ORDERED: LORazepam 2 MG TABLET PO PRN (01:45)
[2020-04-27] MEDS ORDERED: ZOLPIDEM TARTRATE 10 MG TABLET PO PRN (01:45)
[2020-04-27 02:02] LABS: COVID AG,FIA SOURCE NASOPHARYNGEAL
[2020-04-27 04:41] VITALS: BP 106/55
[2020-04-27] MEDS ORDERED: MAGNESIUM HYDROXIDE SUSPENSION 30 ML UDCUP PO PRN (07:45)
[2020-04-27] MEDS ORDERED: CloNIDine HCL 0.1 MG TABLET PO PRN (07:45)
[2020-04-27] MEDS ORDERED: LOPERAMIDE HCL 2 MG CAPSULE PO PRN (07:45)
[2020-04-27] MEDS ORDERED: PETROLATUM,WHITE 28 GM JELLY TP PRN (07:45)
[2020-04-27] MEDS ORDERED: IBUPROFEN 400 MG TABLET PO PRN (07:45)
[2020-04-27] MEDS ORDERED: NICOTINE 14 MG/24 HOUR PATCH TD PRN (07:45)
[2020-04-27] MEDS ORDERED: DOCUSATE SODIUM 100 MG CAPSULE PO PRN (07:45)
[2020-04-27] MEDS ORDERED: ALBUTEROL SULFATE HFA 90 MCG/PUFF 8 GM INHALER IH PRN (07:45)
[2020-04-27] MEDS ORDERED: GuaiFENesin/D-METHORPHAN [SUGAR-FREE] 200-20MG/10 ML SYRUP UDCUP PO PRN (07:45)
[2020-04-27] MEDS ORDERED: ONDANSETRON HCL 4 MG TABLET PO PRN (07:45)
[2020-04-27] MEDS ORDERED: ACETAMINOPHEN 325 MG TABLET PO PRN (07:45)
[2020-04-27] MEDS ORDERED: MAG HYDROX/AL HYDROX/SIMETH ES 30 ML SUSPENSION UDCUP PO PRN (07:45)
[2020-04-27 08:00] VITALS: BP 95/65
[2020-04-27] MEDS: RisperiDONE 1 MG TABLET PO SCH (16:01)
[2020-04-27] MEDS: DIVALPROEX SODIUM 500 MG ER TABLET PO SCH (16:01)
[2020-04-27 16:21] VITALS: BP 101/68
[2020-04-27 17:00] VITALS: BP 101/68
[2020-04-28] MEDS: DIVALPROEX SODIUM 500 MG ER TABLET PO SCH ×2 (07:49→16:15)
[2020-04-28] MEDS: RisperiDONE 1 MG TABLET PO SCH ×2 (07:49→16:15)
[2020-04-28 08:00] VITALS: BP 107/66
[2020-04-28 08:53] LABS: CHOL/HDL RATIO 2.9 (3.9-5.7)
[2020-04-28 16:00] VITALS: BP 107/64
[2020-04-29 08:00] VITALS: BP 96/64
[2020-04-29] MEDS: RisperiDONE 1 MG TABLET PO SCH ×2 (08:40→16:40)
[2020-04-29] MEDS: DIVALPROEX SODIUM 500 MG ER TABLET PO SCH ×2 (08:40→16:40)
[2020-04-29 16:49] VITALS: BP 111/73
[2020-04-30] MEDS: DIVALPROEX SODIUM 500 MG ER TABLET PO SCH (08:11)
[2020-04-30] MEDS: RisperiDONE 1 MG TABLET PO SCH (08:11)
[2020-04-30 09:31] VITALS: BP 98/65
== END 2020-04-30 15:30 | disposition home or self-care (01) | DRG 750 ==
LOC: EMS 23:06 → 3EC 04-27 01:39
PROVIDERS: ADMIT Psychiatry & Neurology Psychiatry; ATTEND Psychiatry & Neurology Psychiatry
DX: F25.1 Schizoaffective disorder, depressive type (principal); F12.10 Cannabis abuse, uncomplicated; F15.10 Other stimulant abuse, uncomplicated; F32.9 Major depressive disorder, single episode, unspecified; R45.851 Suicidal ideations; Z91.14 Patient's other noncompliance with medication regimen; Z91.19 Patient's noncompliance with other medical treatment and regimen; F17.210 Nicotine dependence, cigarettes, uncomplicated; F41.9 Anxiety disorder, unspecified; E87.1 Hypo-osmolality and hyponatremia; Z20.828 Contact with and (suspected) exposure to other viral communicable diseases
CPT/HCPCS: 87426; G0480